=== PATIENT | male | born 1990 | race Hispanic/Latino ===

== ENCOUNTER 2019-11-12 23:10 | Emergency (ER) | payer SELFPAY ==
[2019-11-13 00:25] LABS: Acetaminophen Less than 6.0 mcg/mL (10.0-30.0); Alcohol Less than 10 mg/dL (Less than 10); Salicylate Less than 8.0 mg/dL (15.0-30.0)
[2019-11-13 02:22] LABS: Amphetamine Not Detected (NotDetected); Barbiturates Screen Not Detected (NotDetected); Benzodiazepine Screen Not Detected (NotDetected); Cocaine Metabolite Screen Not Detected (NotDetected); Medtox Control Line Valid? VALID (VALID); Medtox Reader # READER 1; Methadone Not Detected (NotDetected); Methamphetamine Not Detected (NotDetected); Opiate Screen Not Detected (NotDetected); Oxycodone Screen Not Detected (NotDetected); Phencyclidine (PCP) Not Detected (NotDetected); THC/Cannabinoid Screen Not Detected (NotDetected); Tricyclic Screen Not Detected (NotDetected)
== END 2019-11-13 02:30 | disposition home or self-care (01) ==
LOC: EDBD 23:10 → ERS 23:10
DX: S50.812A Abrasion of left forearm, initial encounter (principal); S50.811A Abrasion of right forearm, initial encounter; R41.82 Altered mental status, unspecified; X58.XXXA Exposure to other specified factors, initial encounter
CPT/HCPCS: 36415; 80306; 80307; 99285

== ENCOUNTER 2019-12-03 22:41 | Emergency (ER) | payer SELFPAY ==
[~2019-12-03 22:41] MED LIST: Iopamidol-370 76% 500 ML 1 ML ONE
[2019-12-03 23:14] LABS: #Basophils 0.1 thou/uL (0.0-0.2); #Eosinphils 0.1 thou/uL (0.0-0.7); #Lymphocytes 2.5 thou/uL (1.20-3.40); #Monocytes 0.6 thou/uL (0.11-0.59); #Neutrophils 4.6 thou/uL (1.40-6.50); %Basophils 1.5 % (0.0-1.0); %Eosinophils 1.7 % (0.0-10.0); %Lymphocytes 31.5 % (21.0-51.0); %Monocytes 8.1 % (0.0-10.0); %Neutrophils 57.3 % (42.0-75.0); Hemoglobin 14.3 g/dL (14.0-18.0); Mean Corpuscular Hemoglobin 29.3 pg (27.0-31.0); Mean Corpuscular Volume 86.1 fL (78.0-98.0); Mean Platelet Volume 8.7 fL (7.4-10.4); Platelet Count 292 thou/uL (130-400); RBC Distribution Width 12.6 % (11.5-14.5); Red Blood Cell (RBC) Count 4.89 mill/uL (4.70-6.10)
[2019-12-03 23:37] LABS: ALT (SGPT) 93 U/L (8-55); AST (SGOT) 28 U/L (5-34); Albumin 4.5 g/dL (3.5-5.0); Alkaline Phosphatase 99 U/L (40-110); Anion Gap 11 mmol/L (10-20); BUN (Urea Nitrogen) 9 mg/dL (8.9-20.6); Bilirubin, Total 0.2 mg/dL (0.2-1.2); Calc. Creatinine Clearance 0 mL/min (70-130); Calcium 9.4 mg/dL (7.8-10.44); Carbon Dioxide 29 mmol/L (22-29); Chloride 104 mmol/L (98-107); Estimated GFR-MDRD Greater than 90; Glucose 110 mg/dL (70-105); Potassium 3.4 mmol/L (3.5-5.1); Protein, Total 7.5 g/dL (6.0-8.3); Sodium 141 mmol/L (136-145)
[2019-12-04] MEDS ORDERED: Mag-Al 1200 mg/1200 mg/30 ML UDCUP ONE (00:14)
[2019-12-04] MEDS ORDERED: Famotidine/PF 20 mg/2ml Vial ONE (00:14)
[2019-12-04] MEDS ORDERED: Lidocaine Viscous Sol 2% 15 ml UD Cup ONE (00:14)
[2019-12-04] MEDS ORDERED: Famotidine 20 MG TAB ONE (00:15)
--- NOTE | 2019-12-04 07:30 | RAD ---
FRONTAL RADIOGRAPH CHEST: Date: 12/03/2019 COMPARISON: 06/25/2017. HISTORY: Pain. FINDINGS: Lungs are clear. Heart and mediastinal contours are unremarkable. IMPRESSION: No acute findings. POS: [facility]
--- NOTE | 2019-12-04 07:53 | CT ---
CT ABDOMEN AND PELVIS: Date: 12/03/2019 COMPARISON: None. HISTORY: Epigastric pain. TECHNIQUE: Axial CT imaging at 5 mm intervals from lung bases through pubic symphysis without contrast. Coronal and sagittal reformatted imaging obtained. FINDINGS: The imaged lung bases appear unremarkable. No free intraperitoneal air or fluid is seen. The liver demonstrates a hyperenhancing focus posteriorly measuring 9.0 mm on axial image 24, which l ikely represents a vascular lesion such as a flash-filling hemangioma. The gallbladder, spleen, pancreas, adrenal glands, and kidneys appear grossly unremarkable. Evaluation of the bowel is limited without oral contrast media. No evidence for bowel inflammatory ch tarik or obstruction. No evidence for appendicitis. The vascular structures of the abdomen/pelvis appe ar patent. No abdominal or pelvic lymphadenopathy. No acute osseous abnormality is noted. IMPRESSION: 1. No acute findings within the abdomen/pelvis. 2. Nonspecific subcentimeter hyperenhancing focus within the posterior aspect of the right lobe of t he liver. Etiology is uncertain. This likely represents a vascular lesion or flash-filling hemangioma . Recommend a follow-up MRI of the abdomen with and without contrast on a nonemergent basis for full assessment. EMILY Kim
--- NOTE | 2019-12-04 14:34 | EKG ---
Test Reason : Blood Pressure : / mmHG Vent. Rate : 071 BPM Atrial Rate : 071 BPM P-R Int : 154 ms QRS Dur : 092 ms QT Int : 384 ms P-R-T Axes : 063 003 031 degrees QTc Int : 417 ms Normal sinus rhythm Normal ECG Confirmed by GRACE SALINAS, ANG Mooney ([id number]), makeup editor ODALYS COLLADO ([id number]) on 12/04/2019 2:34:09 PM Referred By: Confirmed By:ANG EDWARDS MD
== END 2019-12-04 02:30 | disposition home or self-care (01) ==
LOC: ERS 22:41
DX: K29.00 Acute gastritis without bleeding (principal)
CPT/HCPCS: 71045; 74177; 80053; 84484; 85025; 93005; Q9967; S0028

== ENCOUNTER 2020-08-06 05:19 | Emergency (ER) | payer SELFPAY ==
[2020-08-06 06:10] LABS: #Basophils 0.1 thou/uL (0.0-0.2); #Monocytes 0.6 thou/uL (0.11-0.59); #Neutrophils 3.7 thou/uL (1.40-6.50); %Basophils 1.1 % (0.0-1.0); %Eosinophils 0.7 % (0.0-10.0); %Lymphocytes 31.7 % (21.0-51.0); %Monocytes 9.1 % (0.0-10.0); %Neutrophils 57.4 % (42.0-75.0); Mean Corpuscular HGB CONC 32.5 g/dL (32.0-36.0); Mean Corpuscular Hemoglobin 26.6 pg (27.0-31.0); Mean Corpuscular Volume 81.9 fL (78.0-98.0); Mean Platelet Volume 8.1 fL (7.4-10.4); Platelet Count 248 thou/uL (130-400); RBC Distribution Width 12.8 % (11.5-14.5); Red Blood Cell (RBC) Count 5.28 mill/uL (4.70-6.10); White Blood Cell (WBC) Count 6.4 thou/uL (4.8-10.8)
[2020-08-06 06:33] LABS: ALT (SGPT) 33 U/L (8-55); AST (SGOT) 25 U/L (5-34); Albumin 4.5 g/dL (3.5-5.0); Alkaline Phosphatase 100 U/L (40-110); Anion Gap 17 mmol/L (10-20); BUN (Urea Nitrogen) 8 mg/dL (8.9-20.6); Bilirubin, Total 0.7 mg/dL (0.2-1.2); CK (CPK) 319 U/L (30-200); Calc. Creatinine Clearance 0 mL/min (70-130); Calcium 8.6 mg/dL (7.8-10.44); Carbon Dioxide 26 mmol/L (22-29); Chloride 101 mmol/L (98-107); Globulin 2.9 g/dL (2.4-3.5); Glucose 106 mg/dL (70-105); Lipase 23 U/L (8-78); Potassium 3.6 mmol/L (3.5-5.1); Protein, Total 7.4 g/dL (6.0-8.3); Sodium 140 mmol/L (136-145)
[2020-08-06] MEDS ORDERED: Ketorolac Tromethamine 30 MG/ML VIAL ONE (08:00)
[2020-08-06] MEDS ORDERED: Mag-Al 1200 mg/1200 mg/30 ML UDCUP ONE (08:00)
[2020-08-06] MEDS ORDERED: Lidocaine Viscous Sol 2% 15 ml UD Cup ONE (08:00)
--- NOTE | 2020-08-06 08:29 | RAD ---
CHEST 1 VIEW: Date: 08/06/2020 INDICATION: Abdominal pain. COMPARISON: Prior exam dated 12/03/2019. IMPRESSION: No acute cardiopulmonary abnormality. Exam is unchanged from the comparison dated 12/03/2019. POS: [facility]
[2020-08-06] MEDS ORDERED: Ondansetron PF 4 MG/2 ML Vial ONE (09:00)
[2020-08-06] MEDS ORDERED: Iopamidol-370 76% 500 ML 1 ML ONE (09:48)
--- NOTE | 2020-08-06 10:58 | ULT ---
RIGHT UPPER QUADRANT ULTRASOUND: Date: 08/06/2020 INDICATION: Upper abdominal pain. COMPARISON: Prior CT of abdomen and pelvis dated 12/03/2019. FINDINGS: There is increased echogenicity in the liver suspicious for fatty infiltration. The gallbladder is mi ldly distended. No intraluminal stone is evident. No gallbladder wall thickening is evident. No sonog raphic Benson's sign is evident. Common bile duct is slightly prominent measuring 7.6 and 1.0 cm dist ally in size. No definite intraluminal stone is evident. Visualized aspects of the pancreatic head ap pear within normal limits; however, a majority of the pancreas is obscured by overlying bowel gas. Ri ght kidney measures 10.8 cm in length without evidence of hydronephrosis. IMPRESSION: 1. Fatty infiltration of the liver. 2. Nonspecific mild prominence of the common bile duct. Distal obstructing process such as a stone o r mass cannot be entirely excluded. Further evaluation with MRCP may be helpful for additional charac terization. POS: [facility]
--- NOTE | 2020-08-06 11:01 | CT ---
CT ABDOMEN AND PELVIS WITH IV CONTRAST: Date: 08/06/2020 HISTORY: 29-year-old male with epigastric pain and abdominal pain. COMPARISON: 12/03/2019. FINDINGS: The lung bases are unremarkable. The liver demonstrates decreased attenuation compared to the spleen consistent with fatty infiltration. The small flash-filling hemangioma in the posterior aspect of the right lobe of the liver is stable. No calcified gallstones are seen. The spleen, pancreas, adrenal g lands, and kidneys are normal. No free air, free fluid, or lymphadenopathy is seen. No peripancreatic inflammatory changes are seen. The aorta is of normal caliber. The small bowel loops are not abnormally dilated. A normal appearing appendix is seen. No acute osseous abnormalities are noted. IMPRESSION: No evidence of acute process in the abdomen or pelvis. POS: [facility]
== END 2020-08-06 10:48 | disposition home or self-care (01) ==
LOC: ERS 05:19
DX: R10.13 Epigastric pain (principal); R11.10 Vomiting, unspecified; R00.0 Tachycardia, unspecified
CPT/HCPCS: 36415; 71045; 74177; 76705; 80053; 82550; 83605; 83690; 84484; 85025; 93005; 96374; 96375; J1885; J2405; Q9967